=== PATIENT | female | born 1965 | race Caucasian/White ===

== ENCOUNTER 2016-09-30 07:06 | Day surgery (SDC) | payer BC ==
[~2016-09-30] VITALS: Ht 167.6 cm; Wt 93.1 kg
[2016-09-30] VITALS (9 sets, daily range): BP systolic 93–119; BP diastolic 54–75; PULSE 56–80; TEMP 97.1–97.7
[~2016-09-30 07:06] MED LIST: HYZAAR 50-12.1 UDTAB PO; IBU400 MG PO; SYNTHROID 0.10.15 MG PO
[2016-09-30] MEDS ORDERED: MOTRIN 800800 MG/TAB PO (09:12)
[2016-09-30] MEDS ORDERED: PERCOCET 325 MG1 TA2 PO (09:13)
== END 2016-09-30 17:00 | disposition home or self-care (01) ==
LOC: SDCO 07:06
DX: N92.0 Excessive and frequent menstruation with regular cycle (principal); N73.6 Female pelvic peritoneal adhesions (postinfective); E11.9 Type 2 diabetes mellitus without complications; E03.9 Hypothyroidism, unspecified; I10 Essential (primary) hypertension; E66.9 Obesity, unspecified; Z68.32 Body mass index [BMI] 32.0-32.9, adult; Z83.3 Family history of diabetes mellitus; Z81.8 Family history of other mental and behavioral disorders; Z84.1 Family history of disorders of kidney and ureter; Z80.6 Family history of leukemia; Z80.42 Family history of malignant neoplasm of prostate; Z83.49 Family history of other endocrine, nutritional and metabolic diseases
CPT/HCPCS: A4315; J0690; J1100; J1885; J2250; J2405; J2704; J3010; J7120

== ENCOUNTER 2016-10-04 19:41 | Emergency (ER) | payer BC ==
[~2016-10-04] VITALS: Ht 167.6 cm; Wt 92.7 kg
[~2016-10-04 19:41] MED LIST changes: +MOTRIN 800800 MG/TAB PO; +PERCOCET 325 MG1 TA2 PO
[2016-10-04 20:27] LABS: BASO % 0.2 % (0.0-2.0); EOS # 0.1 (0.0-0.7); EOS % 0.9 % (0-4.0); GRAN # 10.8 (1.4-6.5); HEMATOCRIT 35.9 % (37.0-47.0); HEMOGLOBIN 12.2 g/dl (12.5-16.0); LYMPH # 1.1 (1.2-3.4); LYMPH % 8.4 % (20.0-51.0); MEAN CELL VOLUME 86 fl (80.0-100.0); MEAN CORPUSCULAR HEMOGLOBIN 29 pg (27.0-31.0); MEAN CORPUSCULAR HGB CONC 34 g/dl (33.0-37.0); MEAN PLATELET VOLUME 9.3 fl (7.4-10.4); MONO # 0.8 (0.1-0.6); MONO % 6.1 % (1.7-9.3); PLATELET COUNT 172 K/mm3 (130-400); RED BLOOD COUNT 4.17 M/mm3 (4.10-5.30); REDCELL DISTRIBUTION WIDTH-CV 13.2 % (11.5-14.5); WHITE BLOOD COUNT 12.9 K/mm3 (4.8-10.8)
[2016-10-04 20:36] LABS: ADJUSTED CALCIUM 9.2 mg/dL (8.4-10.2); ALBUMIN 4.1 gm/dL (3.5-5.0); BILIRUBIN,TOTAL 0.8 mg/dL (0.0-1.0); CALCIUM 9.3 mg/dL (8.4-10.2); CREATININE, serum 0.75 mg/dL (0.52-1.25); TOTAL PROTEIN 7.2 gm/dL (6.4-8.2)
[2016-10-04 20:47] LABS: PH 6 (5-8); SQUAMOUS EPITHELIAL 0-2 /hpf; URINE APPEARANCE Clear; URINE BACTERIA None Seen /hpf; URINE BILIRUBIN Negative (NEGATIVE); URINE BLOOD 1+ (NEGATIVE); URINE COLOR Yellow; URINE GLUCOSE Negative (NEGATIVE); URINE KETONE Negative (NEGATIVE); URINE RBC 0-2 /hpf; URINE UROBILINOGEN Negative (NEGATIVE); URINE WBC 0-2 /hpf
[2016-10-04 20:51] LABS: C-REACTIVE PROTEIN 14.8 mg/dL (0.0-0.9)
[2016-10-04 21:44] VITALS: TEMP 98.6
[2016-10-04] MEDS ORDERED: CEPHALEXIN500 M1 PO (22:16)
[2016-10-04] MEDS ORDERED: FLAGYL500 MG PO (22:16)
[2016-10-04 23:01] VITALS: BP 100/60; PULSE 81
== END 2016-10-04 23:01 | disposition home or self-care (01) ==
LOC: COL.ER 19:41
PROVIDERS: Emergency Medicine
DX: G89.18 Other acute postprocedural pain (principal); R50.82 Postprocedural fever; R10.2 Pelvic and perineal pain; R63.0 Anorexia; Z90.710 Acquired absence of both cervix and uterus; I10 Essential (primary) hypertension
CPT/HCPCS: J0696; J2270; J2405; J7030; Q9967

== ENCOUNTER → 2016-12-02 | Outpatient (CLI) | payer BC ==
[~2016-12-02] MED LIST changes: +CEPHALEXIN500 M1 PO; +FLAGYL500 MG PO
== END ==
LOC: MC.RAD 11:04
DX: Z12.31 Encounter for screening mammogram for malignant neoplasm of breast (principal)